=== PATIENT | female | born 1975 | race Caucasian/White ===

== ENCOUNTER 2018-07-22 00:56 | Emergency (ER) | payer OTHER ==
[~2018-07-22] VITALS: Ht 167.6 cm; Wt 72.6 kg
[2018-07-22] MEDS ORDERED: NKM (00:59)
[2018-07-22] MEDS ORDERED: Morphine Sulfate 4mg/ml Inj (IV USE ONLY) IVP ONE ×2 (01:15→03:30)
--- NOTE | 2018-07-22 01:15 | NUR ---
ED Nurse Note: RECIEVED PT FROM HOME, HERE WITH C/O SEVERE, SUDDEN, RIGHT SIDE LOWER ABDOMINAL PAIN THAT AWAKENED HER, PAIN AT 8/10 AND SHARP, PT DENIES VOMITING BUT HAS NAUSEA, NO CP, NO SOB OR LABORED BREATHING, NO HX, PT IMMEDIATELY GOWNED AND PLACED ON CARDIAC MONITORING, WILL RESUME CARE ORDERED AND CONTINUE TO CLOSELY MONITOR.
[2018-07-22 01:40] LABS: BASOPHILS % (AUTO) 0.6 % (0.0-2.0); EOSINOPHILS % (AUTO) 1.3 % (0.0-3.0); HEMATOCRIT 42.4 % (37.0-47.0); HEMOGLOBIN 14.8 G/DL (12.0-16.0); LYMPHOCYTES % (AUTO) 25.5 % (20.0-45.0); MEAN CORPUSCULAR VOLUME 86 FL (80-99); MONOCYTES % (AUTO) 4.8 % (1.0-10.0); NEUTROPHILS % (AUTO) 67.8 % (45.0-75.0); PLATELET COUNT 190 K/UL (150-450); RED BLOOD COUNT 4.94 M/UL (4.20-5.40); RED CELL DISTRIBUTION WIDTH 10.7 % (11.6-14.8)
[2018-07-22 01:49] LABS: ANION GAP 14 mmol/L (5-15); BLOOD UREA NITROGEN 22 mg/dL (7-18); CALCIUM 9.7 MG/DL (8.5-10.1); CARBON DIOXIDE 26 MMOL/L (21-32); CHLORIDE 100 MMOL/L (98-107); CREATININE 0.8 MG/DL (0.55-1.30); POTASSIUM 3.5 MMOL/L (3.5-5.1); SODIUM 140 MMOL/L (136-145)
[2018-07-22 01:54] LABS: ALANINE AMINOTRANSFERASE 21 U/L (12-78); ALBUMIN 3.8 G/DL (3.4-5.0); ALBUMIN/GLOBULIN RATIO 1.1 (1.0-2.7); ALKALINE PHOSPHATASE 64 U/L (46-116); ASPARTATE AMINO TRANSFERASE 15 U/L (15-37); BILIRUBIN,TOTAL 0.2 MG/DL (0.2-1.0)
[2018-07-22 02:15] VITALS: BP 109/58
[2018-07-22] MEDS ORDERED: Isovue-300 100ml vial INJ PRN (03:15)
[2018-07-22 03:20] LABS: APPEARANCE,URINE CLEAR; BILIRUBIN, URINE NEGATIVE (NEGATIVE); GLUCOSE, URINE (UA) NEGATIVE (NEGATIVE); KETONES,URINE NEGATIVE (NEGATIVE); LEUKOCYTE ESTERASE ,URINE 1+ (NEGATIVE); NITRITE,URINE NEGATIVE (NEGATIVE); PH,URINE 6.5 (4.5-8.0); PROTEIN,URINE NEGATIVE (NEGATIVE); UROBILINOGEN,URINE NORMAL MG/DL (0.0-1.0)
--- NOTE | 2018-07-22 03:30 | NUR ---
ED Nurse Note: PT STATES MEDS FOR PAIN SLIGHTLY EFFCTIVE, REMAINS WITH PAIN AT 4/10 AND STATES IS INCREASING, MD AWARE, PT REMAINS ON MONITORING, IV SITE PATENT AND V/S STABLE, PT AT BEDSIDE, PT NOW GOING FOR ULTRASOUND, WILL CONITNUE TO CLOSELY MONITOR.
[2018-07-22 03:38] LABS: COLOR,URINE YELLOW
[2018-07-22 04:10] VITALS: BP 121/64
[2018-07-22] MEDS ORDERED: Ketorolac 30mg Inj IV ONE (05:30)
[2018-07-22] MEDS ORDERED: DICYCLOMINE HCL10 MG PO (05:32)
[2018-07-22] MEDS ORDERED: ZOFRAN ODT8 MG ORAL (05:32)
[2018-07-22] MEDS ORDERED: NORCO 5-325 TA1 EACH ORAL (05:32)
[2018-07-22 06:05] VITALS: BP 115/71
--- NOTE | 2018-07-22 06:20 | NUR ---
ED Nurse Note: PT BEING D/C TO HOME, AWAKE, ALERT AND ORIENTED X 4, AMBULATORY, NO CP, NO SOB, ABD PAIN AT 4/10 AFTER TORADOL, PT WITH TO DRIVE, BOTH PARTIES GIVEN F/U INFO,A FTER CARE INSTRUCTIONS AND RE-VERBALIZES PROPER MEDICATION ADMINISTRATION, IV LINE AND ARMBAND REMOVED WITHOUT COMPLICATIONS, PT GIVEN COPIES OF ULTRASOUND, NAD NOTED DURING PT D/C TO HOME.
[2018-07-22 06:32] VITALS: BP 121/64
--- NOTE | 2018-07-22 11:27 | Diagnostic Imaging Report ---
Indication: Abdominal pain Technique: Continuous helical transaxial imaging of the abdomen and pelvis was obtained from the lung bases to the pubic symphysis during intravenous contrast administration. Coronal 2-D reformats were also obtained. Study obtained in a Siemens sensation [address] Automatic Exposure Control was utilized. Total Dose length Product (DLP): 803.[address] Dose Index Volume (CTDIvol): 15.23 mGy Comparison: None Findings: There is minimal basal atelectasis demonstrated posteriorly. There is a hypodensity demonstrated within the inferior right lobe of the liver likely cystic. The there are one or 2 cysts suspected within the right kidney. Gallbladder is unremarkable. The liver and spleen are prominent. There is no ascites. The pancreas and adrenal glands appear unremarkable. There is no hydronephrosis. The appendix is normal. There is suggestion of a left ovarian cyst 2 to 3 cm in size. There is trace free fluid within the pelvis. Urinary bladder is unremarkable. IMPRESSION: No acute findings. Multiple incidental findings as described above. [facility] has communicated the preliminary results to the Emergency Department. Their findings are largely concordant with this report. The CT scanner at [facility] is accredited by the [employer] and the scans are performed using dose optimization techniques as appropriate to a performed exam including Automatic Exposure control.
--- NOTE | 2018-07-22 12:13 | Diagnostic Imaging Report ---
Indication: Bilateral adnexal cysts. Abnormal CT. Pelvic and abdominal pain Technique: Grayscale and duplex Doppler imaging of the pelvis performed utilizing a transabdominal and endovaginal scan. Comparison: None Findings: Uterus is retroverted. The endometrium measures 7 mm in thickness. There are multiple cysts within both ovaries. On the right there is a cyst measuring 1.7 x 1.4 cm and another cyst measuring 2.2 cm. Other smaller cysts are present. On the left, there is a cyst that is poorly imaged measuring 2 cm x 1.3 cm. The left ovary is not seen well due to bowel gas. There is dopplerable blood flow within both ovaries. The right ovary measures 4.5 x 3.6 x 2.7 cm. The left ovary measures approximately 3.2 x 2.9 x 2.5 cm. IMPRESSION: No acute findings. Retroverted uterus. Bilateral ovarian cysts as described above. Recommend follow-up examination in 6 weeks
--- NOTE | 2018-07-26 18:24 | Emergency Room Report ---
History of Present Illness General Chief Complaint: Abdominal Pain Source: Patient Present Illness HPI Patient is a 43-year-old female brought in by EMSPatient was noted to have increased right-sided abdominal pain. Patient stated this occurred during rest. She denies any fever. He reports having increased nausea. She denies any diarrhea. Pain was sudden onset. She reports having increased pain with movement. Prior history of but denies any other surgical history. She states she has been having normal bowel movements. She denies similar symptoms in the past. Allergies: Coded Allergies: No Known Allergies (Unverified , 07/22/18) Patient History Past Medical History: see triage record Past Surgical History: unable to obtain Last Menstrual Period: 07/07/18 Now: No Reviewed Nursing Documentation: PMH: Agreed; PSxH: Agreed Nursing Documentation-PMH Hx Seizures: Yes - seizure Review of Systems All Other Systems: negative except mentioned in HPI Physical Exam Sp02 EP Interpretation: reviewed, normal General Appearance: normal inspection, well appearing, no apparent distress, alert, GCS 15 Head: atraumatic ENT: normal ENT inspection, hearing grossly normal, normal voice Neck: normal inspection, full range of motion, supple, no bony tend Respiratory: normal inspection, lungs clear, normal breath sounds, no respiratory distress, no retraction, no wheezing Cardiovascular #1: regular rate, rhythm, no edema Gastrointestinal: normal inspection, normal bowel sounds, soft, no guarding, no hernia, tenderness - Right lower abdomen.Patient is Genitourinary: no CVA tenderness Musculoskeletal: normal inspection, back normal, normal range of motion Neurologic: normal inspection, alert, oriented x3, responsive, 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 Differential diagnoses included ischemic bowel, ovarian torsion, Appendicitis, perforated viscus, abdominal aortic aneurysm, inferior myocardial infarction, viral gastroenteritis among others. Because of complexity of patient's case laboratory testing and imaging studies were ordered. Laboratory testing was essentially unremarkable. Patient was given medications for pain. CT imaging of the abdomen pelvis showed mild hepatosplenomegaly without evidence appendicitis. Pelvic ultrasound showed normal ovaries without evident cysts or torsion. Patient was given IV pain medications. She was offered admission due to tenderness. Patient declined admission. She was advised to follow-up with her primary care physician for recheck in 24 hours. Patient was advised to return if she had any worsening of condition or other concerns. She is given medications for symptomatic treatment. She was advised alcohol cessation due to hepatosplenomegaly and advised the patient that further workup for the hepatosplenomegaly is indicated. Labs Test 07/22/18 01:05 07/22/18 03:07 White Blood Count 7.0 K/UL (4.8-10.8) Red Blood Count 4.94 M/UL (4.20-5.40) Hemoglobin 14.8 G/DL (12.0-16.0) Hematocrit 42.4 % (37.0-47.0) Mean Corpuscular Volume 86 FL (80-99) Mean Corpuscular Hemoglobin 29.9 PG (27.0-31.0) Mean Corpuscular Hemoglobin Concent 34.9 G/DL (32.0-36.0) Red Cell Distribution Width 10.7 % (11.6-14.8) Platelet Count 190 K/UL (150-450) Mean Platelet Volume 6.9 FL (6.5-10.1) Neutrophils (%) (Auto) 67.8 % (45.0-75.0) Lymphocytes (%) (Auto) 25.5 % (20.0-45.0) Monocytes (%) (Auto) 4.8 % (1.0-10.0) Eosinophils (%) (Auto) 1.3 % (0.0-3.0) Basophils (%) (Auto) 0.6 % (0.0-2.0) Prothrombin Time 10.5 SEC (9.30-11.50) Prothromb Time International Ratio 1.0 (0.9-1.1) Activated Partial Thromboplast Time 23 SEC (23-33) Sodium Level 140 MMOL/L (136-145) Potassium Level 3.5 MMOL/L (3.5-5.1) Chloride Level 100 MMOL/L (98-107) Carbon Dioxide Level 26 MMOL/L (21-32) Anion Gap 14 mmol/L (5-15) Blood Urea Nitrogen 22 mg/dL (7-18) Creatinine 0.8 MG/DL (0.55-1.30) Estimat Glomerular Filtration Rate > 60 mL/min (>60) Glucose Level 114 MG/DL (74-106) Calcium Level 9.7 MG/DL (8.5-10.1) Total Bilirubin 0.2 MG/DL (0.2-1.0) Aspartate Amino Transf (AST/SGOT) 15 U/L (15-37) Alanine Aminotransferase (ALT/SGPT) 21 U/L (12-78) Alkaline Phosphatase 64 U/L (46-116) Total Protein 7.4 G/DL (6.4-8.2) Albumin 3.8 G/DL (3.4-5.0) Globulin 3.6 g/dL Albumin/Globulin Ratio 1.1 (1.0-2.7) Lipase 137 U/L (73-393) Human Chorionic Gonadotropin, Quant 1 mIU/mL (1-6) Urine Color Yellow Urine Appearance Clear Urine pH 6.5 (4.5-8.0) Urine Specific [place] 1.015 (1.005-1.035) Urine Protein Negative (NEGATIVE) Urine Glucose (UA) Negative (NEGATIVE) Urine Ketones Negative (NEGATIVE) Urine Blood Negative (NEGATIVE) Urine Nitrite Negative (NEGATIVE) Urine Bilirubin Negative (NEGATIVE) Urine Urobilinogen Normal MG/DL (0.0-1.0) Urine Leukocyte Esterase 1+ (NEGATIVE) Urine RBC 0-2 /HPF (0 - 2) Urine WBC 2-4 /HPF (0 - 2) Urine Squamous Epithelial Cells Few /LPF (NONE/OCC) Urine Bacteria Few /HPF (NONE) Status: improved Disposition: HOME, SELF-CARE Condition: Stable Scripts Hydrocodone Bit/Acetaminophen 5-325* (NORCO 5-325*) 1 Each Tablet 1 TAB ORAL Q6H PRN for For Pain, #10 TAB 0 Refills Prov: Arias Escoto MD 07/22/18 Dicyclomine Hcl* (DICYCLOMINE HCL*) 10 Mg Capsule 10 MG PO QID, #30 CAP Prov: Arias Escoto MD 07/22/18 Ondansetron Odt* (ZOFRAN ODT*) 8 Mg Tab.rapdis 4 MG ORAL Q6H PRN for Nausea & Vomiting, #30 TAB Prov: Arias Escoto MD 07/22/18 Patient Instructions: Abdominal Pain, Adult Additional Instructions: Recheck in 24 hrs. Return if worsening pain, persistent vomiting, fever or other concerns. Arias Escoto MD Jul 26, 2018 18:24
== END 2018-07-22 06:34 | disposition home or self-care (01) ==
LOC: EDBD 00:56 → EMR 02:08
DX: R16.2 Hepatomegaly with splenomegaly, not elsewhere classified (principal); R10.9 Unspecified abdominal pain
CPT/HCPCS: 74177; 76830; 76856; 80053; 81003; 83690; 84702; 85025; 85610; 85730; 96361; 96374; 96375; 96376; 99284; J1885; J2270; J2405; Q9967